=== PATIENT | female | born 1960 | race Caucasian/White ===

== ENCOUNTER 2023-03-03 08:19 | Day surgery (SDC) | payer BC ==
--- NOTE | 2023-03-02 10:05 | P.HPOR ---
History of Present Illness H&P Date: 03/02/23 Subjective: This is a 62 year old female that presents today for initial evaluation regarding a several year history of progressively worsening bilateral hand pain. On the right side she states she has daily numbness and tingling in the fingers isolated the thumb, index, middle and ring fingers. 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 She notes that the right middle finger has become swollen, stiff and locked in a flexed position requiring passive extension. On her left side she states she has similar symptoms but they're less severe. She has occasional numbness and tingling in the thumb, index and middle finger with locking, catching and clicking of the left middle finger. She denies any injury or inciting event. Physical Examination: LUE: AIN/PIN/Radial/Ulnar/Median motor intact. Radial/Ulnar/Median SILT. 2+/4 Radial/Ulnar pulses palpated. 5/5 APB, 5/5 FDI. Negative Finkelsteins, negative CMC grind, positive Durkan's compression. TTP over middle finger A1 lorenza with locking and catching. RUE: AIN/PIN/Radial/Ulnar/Median motor intact. Radial/Ulnar/Median SILT. 2+/4 Radial/Ulnar pulses palpated. 5/5 APB, 5/5 FDI. Negative Finkelsteins, negative CMC grind, positive Durkan's compression. TTP over middle finger A1 lorenza with locking and catching. 2x2cm round mobile mass at radial boarder of thumb IP joint. Imaging: X-Rays of the left hand, 3 view taken in office today demonstrate no abnormality. X-Rays of the right hand, 3 view taken today demonstrate advanced changes at the middle finger DIP joint. Impression: 1.)B/L Carpal tunnel syndrome 2.) B/L middle finger trigger fingers 3.) Right thumb soft tissue mass Plan: Diagnosis and treatment options were discussed with the patient. She would like to go forward with a left middle finger steroid injection for her trigger finger. Written procedural consent was obtained prior to injection. The palmar skin of the left hand was prepped with an alcohol swab. A 1cc mixture of 1% Lidocaine and Depomedrol was injected into the area of the left middle finger A1 lorenza without complication. Band-Aid was placed and the patient tolerated the procedure well. In regards to her more severe right-sided symptoms. She would like to pursue a right endoscopic versus open carpal tunnel release, a right middle finger A1 lorenza release and a right thumb soft tissue mass excision. The patient was agreeable with this plan. CC: Jen Reyes COMPUTER COMPOSITOR -Santiago Champagne DO Orthopedic Hand/Upper Extremity Surgeon Past Medical History Past Medical History: Hyperlipidemia, Hypertension, Osteoarthritis (OA) History of Any Multi-Drug Resistant Organisms: None Reported Past Surgical History: Bladder Surgery, Section, Orthopedic Surgery Additional Past Surgical History / Comment(s): 2 arthroscopic knee surgeries, 2 C-sections, bladder sling, hemorrhoidectomy. Past Anesthesia/Blood Transfusion Reactions: No Reported Reaction Smoking Status: Current every day smoker - Past Family History Mother Family Medical History: Cancer, Coronary Artery Disease (CAD) Additional Family Medical History / Comment(s): at 90 yrs of age, breast cancer and heart problems. Father Family Medical History: Cancer Additional Family Medical History / Comment(s): Oral cancer Medications and Allergies Home Medications Medication Instructions Recorded Confirmed Type Sertraline [Zoloft] 100 mg PO HS 03/01/23 03/01/23 History Simvastatin [Zocor] 20 mg PO HS 03/01/23 03/01/23 History lisinopriL [Zestril] 20 mg PO HS 03/01/23 03/01/23 History Allergies Allergy/AdvReac Type Severity Reaction Status Date / Time No Known Allergies Allergy Verified 03/01/23 09:50 Physical Examination Osteopathic Statement: *. No significant issues noted on an osteopathic structural exam other than those noted in the History and Physical/Consult.
[~2023-03-03 08:19] MED LIST: HYDROmorphone 0.5 MG/0.5 ML SYRINGE IVP PRN; LACTATED RINGERS 1,000 ML IV SCH; ONDANSETRON 4 MG/2 ML VIAL IVP ONE
[2023-03-03 08:55] VITALS: TEMP 97.9
[2023-03-03] MEDS ORDERED: PROPOFOL 10 MG/ML 20 ML VIAL IV ONE (09:35)
[2023-03-03] MEDS ORDERED: fentaNYL (PF) 50 MCG/ML 2 ML AMP ONE (09:35)
[2023-03-03] MEDS ORDERED: MIDAZOLAM 2 MG/2 ML VIAL ONE (09:35)
[2023-03-03] MEDS ORDERED: BUPIVACAINE (PF) 0.5% 30 ML VIAL SQ ONE (09:52)
[2023-03-03] MEDS ORDERED: LIDOCAINE 1% INJ 10MG/ML (20 ML MDV) SQ ONE (09:52)
--- NOTE | 2023-03-03 10:19 | P.OP ---
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 Procedure(s) Performed: 1.) Right endoscopic carpal tunnel release 2.) Right middle finger trigger finger A1 lorenza release 3.) Right thumb IP joint arthrotomy with dorsal osteophyte excision 4.) Right thumb IP joint soft tissue mass excision Anesthesia: MAC Surgeon: Santiago Champagne Estimated Blood Loss (ml): 0 Pathology: other (Right thumb soft tissue mass) Disposition: PACU Description of Procedure: This is a 62 year old female who presents today for a right endoscopic carpal tunnel release, right middle finger A1 lorenza release and right thumb soft tissue mass excision after having failed conservative treatment in the past. Risks and benefits of surgery were discussed with the patient including bleeding, damage to surrounding tissue, infection, need to convert to open procedure, need for further surgery as well as risks of anesthesia including pulmonary embolism and even and the patient wished to proceed with surgical intervention. The patients was seen in the pre-operative area by moises small. Consent and H&P were completed and updated. The correct extremity was marked in the pre-operative area by myself and all other questions were answered. Operative Narrative: The patient was brought to the operating room by the department of anesthesia. They remained on the portable stretcher and a rolling hand table was brought to the side of the operative extremity. Pre-operative time out was performed indicating the correct patient, procedure and laterality. All in the room agreed. The patient was then drifted off to sleep by the department of anesthesia. MAC anesthesia was utilized and a 50:50 mixture of 1% Lidocaine and 0.5% bupivacaine was injected into the subcutaneous tissues of the palmar skin, 10ccs total. A nonsterile tourniquet was then applied to the operative extremity and the right upper extremity was then prepped and draped in normal sterile fashion. The operative extremity was the exsanguinated with an esmarch bandage and the tourniquet was inflated to 250mmHg. 15 blade scalpel was utilized to make a transverse incision on the palmar skin just ulnar to the palmaris longus tendon at the level of the distal wrist crease. Ragnell retractor was then placed radially and blunt dissection was performed to reveal the distal forearm fascia. This was lifted with fine Van pick ups and Selinr tenotomy scissors were then used to open the forearm fascia transversely and a double skin hook was then placed. Hamate finder was placed into the carpal tunnel and then sequential sized dilators were inserted followed by the synovial elevator to separate the flexor tenosynovium from the undersurface of the transverse carpal ligament and a washboard texture was felt. The BLUE HOLDINGSe endoscopic carpal tunnel release system gun was the then inserted into the carpal tunnel hugging the deep portion of the transverse carpal ligament in line with the base of the ring finger. Transverse fibers of the ligament were directly visualized. Pressure was applied on the palm to reveal the distal extent of the transverse carpal ligament. The blade was then deployed and the distal half of the transverse carpal ligament was released. The scope was then brought distal again and remaining transverse fibers were incised with the blade. The proximal half of the transverse carpal ligament was then divided and again the scope was advanced distal and remaining transverse fibers were incised with the blade. The radial and ulnar leaflets were directly visualized and mobile consistent with complete release. Tenotomy scissors were then utilized to release the remaining distal forearm fascia under direct visualization taking care to preserve the palmar cutaneous branch of the median nerve. Skin closure was performed with interrupted 4-0 Monocryl suture followed by steri strips. Attention was then drawn to the middle finger. Oblique incision was made over the A1 lorenza at the base of the right middle finger. Blunt dissection was taken through subcutaneous tissues down to the A1 lorenza and Ragnell retractors were placed radially and ulnarly to protect the neurovascular bundles. The A1 lorenza was identified and released from proximal to distal under direct visualization. The finger was then put through range of motion and no locking or catching was appreciated. Attention was then drawn to the thumb. A longitudinal incision was made of the radial boarder of the thumb overlying the mass at the IP joint. Sharp dissection was taken though the skin followed by blunt dissection around the clear, round mobile mass that appeared to communicated directly with the thumb IP joint. The stalk was identified and the mass was excised and sent for pathology. The thumb IP joint was then entered and the terminal EPL tendon was identified and protec bayron. There was a small dorsal osteophyte present on the radial aspect of the thumb proximal phalanx. This was excised with a rongeur. Skin closure was then performed with 4-0 nylon suture. Sterile dressing was applied consisting 4x4s, Webril, and an libby bandage. Tourniquet was let down and the hand immediately was well perfused. The patient was then woken by the department of anesthesia and transferred to PACU in stable condition. Santiago Champagne D.O. Orthopedic Hand/Upper Extremity Surgeon
[2023-03-03 10:46] VITALS: BP 147/85; PULSE 67; RESP 16
== END 2023-03-03 10:58 | disposition home or self-care (01) ==
LOC: OR 08:19
PROVIDERS: ATTEND Orthopaedic Surgery Hand Surgery
DX: G56.01 Carpal tunnel syndrome, right upper limb (principal); M65.331 Trigger finger, right middle finger; I10 Essential (primary) hypertension; E78.5 Hyperlipidemia, unspecified; M19.90 Unspecified osteoarthritis, unspecified site; F17.200 Nicotine dependence, unspecified, uncomplicated; Z98.890 Other specified postprocedural states; Z82.49 Family history of ischemic heart disease and other diseases of the circulatory system; Z80.3 Family history of malignant neoplasm of breast; Z79.899 Other long term (current) drug therapy
CPT/HCPCS: 29848; 26055; J2250; J2405; J2001; J3010; J2704; J0665